=== PATIENT | male | born 2000 | race African-American/Black ===

== ENCOUNTER 2018-01-02 13:53 | Emergency (ER) | payer SELFPAY ==
--- NOTE | 2018-01-02 16:41 | EDPHYS ---
Physician Documentation [facility] Name: Jared Gooden Age: 17 yrs Sex: Male : 2000 Arrival Date: 01/02/2018 Time: 14:30 Bed 12 Private MD: ED Physician Arturo Cagle HPI: 01/02 16:05 This 17 yrs old Black Male presents to ER via Ambulatory with complaints of Foot Injury.cp 16:05 The patient presents with pain, that is acute. The complaints affect the dorsum of cp right foot. Onset: The symptoms/episode began/occurred last night. Associated signs and symptoms: Pertinent negatives calf tenderness, fever, numbness, warmth. Treatment prior to arrival includes: no previous treatment. Historical: - Allergies: 14:34 No Known Allergies; ph - Home Meds: 14:34 None [Active]; ph - PMHx: 14:34 None; ph - PSHx: 14:34 None; ph - Immunization history:: Adult Immunizations unknown. - Social history:: Smoking status: Patient uses tobacco products, denies chronic smoking, but will smoke occasionally. - Ebola Screening: : No symptoms or risks identified at this time. ROS: 16:10 Eyes: Negative for injury, pain, redness, and discharge. cp 16:10 Constitutional: Negative for body aches, chills, fever, poor PO intake. 16:10 ENT: Negative for drainage from ear(s), ear pain, sore throat, difficulty swallowing, difficulty handling secretions. 16:10 Cardiovascular: Negative for chest pain, edema, palpitations. 16:10 Respiratory: Negative for cough, shortness of breath, wheezing. 16:10 Abdomen/GI: Negative for abdominal pain, nausea, vomiting, and diarrhea, constipation. 16:10 Back: Negative for pain at rest, pain with movement, radiated pain. 16:10 MS/extremity: Positive for pain, swelling, tenderness, of the dorsum of right foot, Negative for paresthesias. 16:10 Skin: Negative for cellulitis, rash. 16:10 Neuro: Negative for numbness, tingling. 16:10 All other systems are negative. Exam: 16:15 Head/Face: Normocephalic, atraumatic. cp 16:15 Constitutional: The patient appears in no acute distress, alert, awake, well developed, well nourished. 16:15 Eyes: Periorbital structures: appear normal, Conjunctiva: normal, no exudate, no injection, Lids and lashes: appear normal, bilaterally. 16:15 ENT: External ear(s): are unremarkable, Nose: is normal, Mouth: is normal, Posterior pharynx: is normal, airway is patent. 16:15 Chest/axilla: Inspection: normal. 16:15 Cardiovascular: Rate: normal. 16:15 Respiratory: the patient does not display signs of respiratory distress, Respirations: normal, no use of accessory muscles, no retractions, no splinting, no tachypnea. 16:15 Abdomen/GI: Exam negative for discomfort, distension, guarding, Inspection: abdomen appears normal. 16:15 Back: pain, is absent, ROM is normal. 16:15 Musculoskeletal/extremity: Extremities: grossly normal except: noted in the dorsum of right foot: pain, tenderness, mild swelling noted proximal right foot dorsal side, There is no evidence of decreased ROM, deformity, ecchymosis, Perfusion: the extremity is normally perfused throughout, Sensation intact. no pain or tenderness palpated right knee and right ankle joints. 16:15 Skin: cellulitis, is not appreciated, no rash present. cp Vital Signs: 14:34 BP 124 / 83; Pulse 96; Resp 18; Temp 97.8; Pulse Ox 100% on R/A; Weight 65.77 kg; ph Height 6 ft. 3 in. (190.50 cm); Pain 8/10; 16:15 BP 122 / 78; Pulse 88; Resp 15; Pulse Ox 100% on R/A; hb 14:34 Body Mass Index 18.12 (65.77 kg, 190.50 cm) ph MDM: 16:03 Patient medically screened. cp 16:30 Differential diagnosis: dislocation, closed fracture, contusion, tendonitis, sprain. cp 16:40 Data reviewed: vital signs, nurses notes, radiologic studies, plain films. cp 16:40 Test interpretation: by ED physician or midlevel provider: plain radiologic studies. cp Counseling: I had a detailed discussion with the patient and/or guardian regarding: the historical points, exam findings, and any diagnostic results supporting the discharge/admit diagnosis, radiology results, to return to the emergency department if symptoms worsen or persist or if there are any questions or concerns that arise at home. 01/02 14:36 Order name: Foot Right 3 View XRAY; Complete Time: 16:50 ph 01/02 16:50 Interpretation: Report reviewed. cp 01/02 16:39 Order name: Crutches; Complete Time: 17:28 cp 01/02 16:39 Order name: Post-op Orthopedic Shoe; Complete Time: 17:28 cp Administered Medications: No medications were administered Disposition: 18:03 Co-signature as Attending Physician, Arturo Cagle MD. rn Disposition: 01/02/18 16:41 Discharged to Home. Impression: Unspecified sprain of right foot. - Condition is Stable. - Discharge Instructions: Foot Sprain, Form - Excuse from Work, School, or Physical Activity. - Prescriptions for Naprosyn 500 mg Oral Tablet - take 1 tablet by ORAL route 2 times per day take with food; 20 tablet. - Medication Reconciliation Form, Thank You Letter, Antibiotic Education, Prescription Opioid Use, Work release form, Family Work Release form. - Follow up: Private Physician; When: 2 - 3 days; Reason: Recheck today's complaints. - Problem is new. - Symptoms are unchanged. Signatures: Dispatcher [employer] EDArturo Soliman MD MD rn Hall, Patricia, RN RN ph Page, Corey, PA PA cp Baxter, Heather, RN RN Corrections: (The following items were deleted from the chart) 17:30 16:41 01/02/2018 16:41 Discharged to Home. Impression: Unspecified sprain of right hb foot. Condition is Stable. Forms are Medication Reconciliation Form, Thank You Letter, Antibiotic Education, Prescription Opioid Use. Follow up: Private Physician; When: 2 - 3 days; Reason: Recheck today's complaints. Problem is new. Symptoms are unchanged. cp
--- NOTE | 2018-01-02 16:41 | ER ---
Nurse's Notes [facility] Name: Jared Gooden Age: 17 yrs Sex: Male : 2000 Arrival Date: 01/02/2018 Time: 14:30 Bed 12 Private MD: Diagnosis: Unspecified sprain of right foot Presentation: 01/02 14:33 Presenting complaint: Patient states: " Last night I jumped up and I landed wrong and ph hurt my foot." Pt reports pain in top of right foot, slight swelling noted, CMS intact. Transition of care: patient was not received from another setting of care. Onset of symptoms was January 02, 2018. Risk Assessment: Do you want to hurt yourself or someone else? Patient reports no desire to harm self or others. Initial Sepsis Screen: Does the patient meet any 2 criteria? No. Patient's initial sepsis screen is negative. Does the patient have a suspected source of infection? No. Patient's initial sepsis screen is negative. Care prior to arrival: None. 14:33 Method Of Arrival: Ambulatory ph 14:33 Acuity: AMAURI 4 ph Triage Assessment: 14:34 General: Appears in no apparent distress. comfortable, slender, well groomed, Behavior ph is calm, cooperative, appropriate for age. Pain: Complains of pain in dorsum of right foot. Neuro: Level of Consciousness is awake, alert, obeys commands, Oriented to person, place, time, situation. Cardiovascular: Capillary refill < 3 seconds Patient's skin is warm and dry. Respiratory: Airway is patent Respiratory effort is even, unlabored. Derm: Skin is intact, is healthy with good turgor, Skin is. Musculoskeletal: Circulation, motion, and sensation intact. Range of motion: intact in all extremities, Swelling present in dorsum of right foot. Historical: - Allergies: 14:34 No Known Allergies; ph - Home Meds: 14:34 None [Active]; ph - PMHx: 14:34 None; ph - PSHx: 14:34 None; ph - Immunization history:: Adult Immunizations unknown. - Social history:: Smoking status: Patient uses tobacco products, denies chronic smoking, but will smoke occasionally. - Ebola Screening: : No symptoms or risks identified at this time. Screenin:15 Abuse screen: Denies threats or abuse. Denies injuries from another. Nutritional hb screening: No deficits noted. Tuberculosis screening: No symptoms or risk factors identified. Fall Risk None identified. Assessment: 16:05 General: Appears in no apparent distress. Behavior is calm, cooperative. Pain: Pain hb currently is 5 out of 10 on a pain scale. Neuro: Level of Consciousness is awake, alert, obeys commands, Oriented to person, place, time, situation. Cardiovascular: Capillary refill < 3 seconds Patient's skin is warm and dry. Respiratory: Airway is patent Trachea midline Respiratory effort is even, unlabored, Respiratory pattern is regular, symmetrical. Musculoskeletal: Reports pain in right foot. Vital Signs: 14:34 BP 124 / 83; Pulse 96; Resp 18; Temp 97.8; Pulse Ox 100% on R/A; Weight 65.77 kg; ph Height 6 ft. 3 in. (190.50 cm); Pain 8/10; 16:15 BP 122 / 78; Pulse 88; Resp 15; Pulse Ox 100% on R/A; hb 14:34 Body Mass Index 18.12 (65.77 kg, 190.50 cm) ph ED Course: 14:30 Patient arrived in ED. ph 14:34 Triage completed. ph 14:35 Arm band placed on Patient placed in an exam room, Patient notified of wait time. X-ray ph ordered. 16:03 Rajinder Olvera PA is PHCP. cp 16:03 Arturo Cagle MD is Attending Physician. cp 16:15 Patient has correct armband on for positive identification. Call light in reach. hb 16:34 X-ray completed. Portable x-ray completed in exam room. Patient tolerated procedure bb2 well. 16:35 Foot Right 3 View XRAY In Process Unspecified. EDMS 17:29 No provider procedures requiring assistance completed. Patient did not have IV access hb during this emergency room visit. Administered Medications: No medications were administered Outcome: 16:41 Discharge ordered by . cp 17:29 Discharged to home ambulatory, with crutches, with family. hb 17:29 Condition: stable 17:29 Discharge instructions given to patient, Instructed on discharge instructions, follow up and referral plans. medication usage, crutch walking, Demonstrated understanding of instructions, follow-up care, medications, crutch walking, Prescriptions given X 1. 17:30 Patient left the ED. hb Signatures: Dispatcher [employer] EDMS Yohana Mccarty RN RN ph Rajinder Olvera PA PA cp Baxter, Heather, RN RN Sarah Vences bb2
--- NOTE | 2018-01-02 16:45 | RAD REPORT ---
EXAM DESCRIPTION: RAD - Foot Right 3 View - 01/02/2018 4:36 pm CLINICAL HISTORY: PAIN COMPARISON: No comparisons FINDINGS: No fracture or dislocation is identified.
== END 2018-01-02 17:30 | disposition home or self-care (01) ==
LOC: ER 13:53
DX: S93.601A Unspecified sprain of right foot, initial encounter (principal); X58.XXXA Exposure to other specified factors, initial encounter; Y93.89 Activity, other specified; Y92.9 Unspecified place or not applicable; Z72.0 Tobacco use
CPT/HCPCS: 99283

== ENCOUNTER 2018-11-25 19:24 | Emergency (ER) | payer SELFPAY ==
[2018-11-25] MEDS ORDERED: ONDANSETRON 4 MG/2 ML VIAL ONE (20:03)
[2018-11-25] MEDS ORDERED: MAGNE/ALUM HYDROXD 30 ML UCUP ONE (20:03)
[2018-11-25] MEDS ORDERED: LIDOCAINE VISCOUS 2% SOLN 15 ML UDC ONE (20:04)
[2018-11-25 20:12] LABS: Absolute Lymphocytes (CBC) 1.2 K/uL (0.7-4.9); Absolute Monocytes 0.7 K/uL (0.1-1.3); Absolute Neutrophil 3.8 K/uL (1.8-8.0); Basophils % 0.4 % (0-1.3); Eosinophils % 1.9 % (0-4.4); Hematocrit 43.4 % (39.6-49.0); Lymphocytes % 21.2 % (15.3-44.8); MPV 8.5 fL (7.6-11.3); Monocytes % 12.3 % (3.3-12.3); RBC Red Blood Cell Count 4.79 M/uL (4.33-5.43)
[2018-11-25 20:25] LABS: ALT/SGPT 23 U/L (12-78); AST/SGOT 24 U/L (15-37); Alkaline Phosphatase 86 U/L (45-117); BUN Blood Urea Nitrogen 14 mg/dL (7-18); Bicarbonate 29 mmol/L (21-32); Bilirubin Direct 0.3 mg/dL (0-0.2); Bilirubin Total 1.3 mg/dL (0.2-1.0); Glucose Level 89 mg/dL (74-106); Lipase 71 U/L (73-393); Potassium 3.7 mmol/L (3.5-5.1); Protein, Total 7.2 g/dL (6.4-8.2); Sodium Level 141 mmol/L (136-145)
--- NOTE | 2018-11-25 20:42 | RAD REPORT ---
EXAM DESCRIPTION: CT - Abdomen Pelvis W Contrast - 11/25/2018 8:33 pm CLINICAL HISTORY: Abdominal pain, hematemesis COMPARISON: None. TECHNIQUE: Biphasic, helical CT imaging of the abdomen and pelvis was performed following 100 ml non -ionic IV contrast. No oral contrast was given. All CT scans are performed using dose optimization technique as appropriate and may include automated exposure control or mA/KV adjustment according to patient size. FINDINGS: No suspicious findings in the lung bases. The liver, spleen, and pancreas show no suspicious findings. Gallbladder and biliary tree are also wi thout suspicious finding. No hydronephrosis or obstructing calculus. There is some heterogeneity of the renal parenchyma probab ly still within range of normal. However, pyelonephritis is not excluded and correlation can be made with any abnormal UA findings. No solid mass lesion. No bladder abnormalities. No adrenal abnormaliti es. No gastric dilatation or gastric wall thickening. No dilated large or small bowel loops seen. The ilsa endix is normal. No free air or pneumatosis. There is a small amount of free intraperitoneal fluid pr esent. No hernia, mass or bulky lymphadenopathy. No suspicious bony findings. IMPRESSION: No appendicitis, obstruction or surgically emergent finding. Small quantity of free intraperitoneal fluid. This is nonspecific but could be secondary to enteritis . Slight heterogeneity of the renal parenchyma is present. Correlation is needed with any UA findings t hat may indicate pyelonephritis.
--- NOTE | 2018-11-25 20:58 | ER ---
Nurse's Notes [facility] Name: Jared Gooden Age: 17 yrs Sex: Male : 2000 Arrival Date: 11/25/2018 Time: 19:28 Bed 17 Private MD: Diagnosis: Hematemesis;Enteritis Presentation: 11/25 19:38 Presenting complaint: Patient states: Yesterday I ate some donuts and then I started ed1 having stomach pain. This morning I threw up and it had blood in it. Transition of care: patient was not received from another setting of care. Onset of symptoms was November 24, 2018. Risk Assessment: Do you want to hurt yourself or someone else? Patient reports no desire to harm self or others. Initial Sepsis Screen: Does the patient meet any 2 criteria? No. Patient's initial sepsis screen is negative. Does the patient have a suspected source of infection? No. Patient's initial sepsis screen is negative. Care prior to arrival: None. 19:38 Method Of Arrival: Ambulatory ed1 19:38 Acuity: AMAURI 3 ed1 Triage Assessment: 19:39 General: Appears in no apparent distress. Behavior is calm, cooperative. Pain: ed1 Complains of pain in abdomen Pain currently is 6 out of 10 on a pain scale. GI: Bowel sounds present X 4 quads. Abd is soft and non tender X 4 quads. Reports upper abdominal pain, vomiting. Historical: - Allergies: 19:39 No Known Allergies; ed1 - Home Meds: 19:39 None [Active]; ed1 - PMHx: 19:39 None; ed1 - PSHx: 19:39 None; ed1 - Immunization history:: Adult Immunizations up to date. - Social history:: Smoking status: Patient uses tobacco products, denies chronic smoking, but will smoke occasionally. - Family history:: not pertinent. - Ebola Screening: : Patient negative for fever greater than or equal to 101.5 degrees Fahrenheit, and additional compatible Ebola Virus Disease symptoms Patient denies exposure to infectious person Patient denies travel to an Ebola-affected area in the 21 days before illness onset No symptoms or risks identified at this time. - Hospitalizations: : No recent hospitalization is reported. Screenin:40 Abuse screen: Denies threats or abuse. Denies injuries from another. Nutritional cc3 screening: No deficits noted. Tuberculosis screening: No symptoms or risk factors identified. Fall Risk Ambulatory Aid- None/Bed Rest/Nurse Assist (0 pts). Gait- Normal/Bed Rest/Wheelchair (0 pts) Mental Status- Oriented to own ability (0 pts). Assessment: 19:40 General: Appears in no apparent distress. comfortable, Behavior is calm, cooperative, cc3 appropriate for age. Pain: Complains of pain in abdomen and umbilical area and epigastric area. Neuro: Level of Consciousness is awake, alert, obeys commands, Oriented to person, place, time, situation, Appropriate for age. Cardiovascular: Patient's skin is warm and dry. Respiratory: Airway is patent Respiratory effort is even, unlabored, Respiratory pattern is regular, symmetrical. GI: Abdomen is flat, non-distended, Parent/caregiver reports the patient having vomiting. : No signs and/or symptoms were reported regarding the genitourinary system. EENT: No signs and/or symptoms were reported regarding the EENT system. Derm: Skin is intact, is healthy with good turgor, Skin is pink, warm \T\ dry. normal. Musculoskeletal: Circulation, motion, and sensation intact. Range of motion: intact in all extremities. 20:18 Reassessment: Patient appears in no apparent distress at this time. Patient and/or cc3 family updated on plan of care and expected duration. Pain level reassessed. Patient is alert, oriented x 3, equal unlabored respirations, skin warm/dry/pink. 21:10 Reassessment: Patient appears in no apparent distress at this time. Patient and/or cc3 family updated on plan of care and expected duration. Pain level reassessed. Patient is alert, oriented x 3, equal unlabored respirations, skin warm/dry/pink. Dr. Cagle discharged the patient home with prescription given. IV cannula removed and patient left ER vitally stable and ambulatory with his mother. Patient denies pain at this time. Patient states feeling better. Patient states symptoms have improved. Vital Signs: 19:39 BP 140 / 104; Pulse 69; Resp 17; Temp 97.3(TE); Pulse Ox 99% on R/A; Weight 66.68 kg; ed1 Height 6 ft. 3 in. (190.50 cm); Pain 6/10; 20:20 BP 131 / 99; Pulse 54; Resp 15 S; Temp 97.3(O); Pulse Ox 100% on R/A; cc3 21:00 BP 127 / 83; Pulse 62; Resp 16 S; Pulse Ox 99% on R/A; cc3 19:39 Body Mass Index 18.37 (66.68 kg, 190.50 cm) ed1 ED Course: 19:28 Patient arrived in ED. es 19:32 Arturo Cagle MD is Attending Physician. rn 19:39 Triage completed. ed1 19:39 Arm band placed on. ed1 19:40 Amie Patel is Primary Nurse. cc3 19:40 Patient has correct armband on for positive identification. Bed in low position. Call cc3 light in reach. Side rails up X 1. Pulse ox on. NIBP on. 19:41 Radiology exam delayed due to lab results not completed at this time. IV insertion vm2 attempt and/or patient not having appropriate IV at this time. 19:55 Inserted saline lock: 20 gauge in right antecubital area, using aseptic technique. cc3 Blood collected. 20:19 Radiology exam delayed due to lab results not completed at this time. (BUN/Creatinine). nj 20:[address] via wheelchair. nj 20:30 CT completed. Patient tolerated procedure well. Patient moved back from CT. nj 20:34 CT Abd/Pelvis - IV Contrast Only In Process Unspecified. EDMS 20:45 Urine collected: clean catch specimen, clear, jacque colored. jp3 20:55 Patient maintains SpO2 saturation greater than 95% on room air. jp3 21:10 No provider procedures requiring assistance completed. IV discontinued, intact, cc3 bleeding controlled, No redness/swelling at site. Pressure dressing applied. Administered Medications: 19:50 Drug: GI Cocktail without - (Maalox Suspension 30 ml, Lidocaine Liquid 2 % 15 cc3 ml) Route: PO; 20:30 Follow up: Response: No adverse reaction; Pain is decreased cc3 19:55 Drug: Zofran 4 mg Route: IVP; Site: right antecubital; cc3 20:15 Follow up: Response: No adverse reaction; Nausea is decreased cc3 Outcome: 20:57 Discharge ordered by . rn 21:10 Discharged to home ambulatory, with family. cc3 21:10 Condition: stable 21:10 Discharge instructions given to patient, family, Instructed on discharge instructions, follow up and referral plans. medication usage, Demonstrated understanding of instructions, follow-up care, medications, Prescriptions given X 1. 21:33 Patient left the ED. cc3 Signatures: Dispatcher [employer] EDDomi Ayala Roman, MD MD rn Frank, KARINA Chavez RN ed1 Amol Clarke [place] 2 Dilan Dunlap 3 Amie Patel cc3
--- NOTE | 2018-11-25 20:58 | EDPHYS ---
Physician Documentation [facility] Name: Jared Gooden Age: 17 yrs Sex: Male : 2000 Arrival Date: 11/25/2018 Time: 19:28 Bed 17 Private MD: ED Physician Arturo Cagle HPI: 11/25 19:38 This 17 yrs old Black Male presents to ER via Unassigned with complaints of Abdominal rn Pain, Vomiting blood. 19:38 The patient presents to the emergency department with nausea, vomiting, abdominal pain, rn of the epigastric area and umbilical area. Onset: The symptoms/episode began/occurred yesterday. Possible causes: unknown. The symptoms are aggravated by nothing. The symptoms are alleviated by nothing. Severity of symptoms: At their worst the symptoms were mild in the emergency department the symptoms have improved. The patient has not experienced similar symptoms in the past. Reports mid to upper abd pain that began yesterday, after eating donuts, today had single episode of emesis, with small amount of blood, no clots, denies diarrhea or blood in stool. Has never happened before. NO trauma. No famhx of GI problems. Denies sob/chest pain/weakness/lightheaded. . Historical: - Allergies: 19:39 No Known Allergies; ed1 - Home Meds: 19:39 None [Active]; ed1 - PMHx: 19:39 None; ed1 - PSHx: 19:39 None; ed1 - Immunization history:: Adult Immunizations up to date. - Social history:: Smoking status: Patient uses tobacco products, denies chronic smoking, but will smoke occasionally. - Family history:: not pertinent. - Ebola Screening: : Patient negative for fever greater than or equal to 101.5 degrees Fahrenheit, and additional compatible Ebola Virus Disease symptoms Patient denies exposure to infectious person Patient denies travel to an Ebola-affected area in the 21 days before illness onset No symptoms or risks identified at this time. - Hospitalizations: : No recent hospitalization is reported. ROS: 19:39 Constitutional: Negative for fever, chills, and weight loss, Eyes: Negative for injury, rn pain, redness, and discharge, Neck: Negative for injury, pain, and swelling, Cardiovascular: Negative for chest pain, palpitations, and edema, Respiratory: Negative for shortness of breath, cough, wheezing, and pleuritic chest pain, Abdomen/GI: + abd pain and vomiting, negative for diarrhea Back: Negative for injury and pain, : Negative for injury, bleeding, discharge, and swelling, MS/Extremity: Negative for injury and deformity, Skin: Negative for injury, rash, and discoloration, Neuro: Negative for headache, weakness, numbness, tingling, and seizure. Exam: 19:39 Constitutional: This is a well developed, well nourished patient who is awake, alert, rn and in no acute distress. Ambulatory to room without difficulty or assistance. Head/Face: Normocephalic, atraumatic. Eyes: Pupils equal round and reactive to light, extra-ocular motions intact. Lids and lashes normal. Conjunctiva and sclera are non-icteric and not injected. Cornea within normal limits. Periorbital areas with no swelling, redness, or edema. ENT: MMM Respiratory: No increased work of breathing, no retractions or nasal flaring. Abdomen/GI: soft, mild periumbilical and epigastric tenderness, no rebound Skin: Warm, dry with normal turgor. Normal color with no rashes, no lesions, and no evidence of cellulitis. MS/ Extremity: Pulses equal, no cyanosis. Neurovascular intact. Full, normal range of motion. Equal circumference. Neuro: Awake and alert, GCS 15, oriented to person, place, time, and situation. Cranial nerves II-XII grossly intact. Motor strength 5/5 in all extremities. Sensory grossly intact. Cerebellar exam normal. Normal gait. Vital Signs: 19:39 BP 140 / 104; Pulse 69; Resp 17; Temp 97.3(TE); Pulse Ox 99% on R/A; Weight 66.68 kg; ed1 Height 6 ft. 3 in. (190.50 cm); Pain 6/10; 20:20 BP 131 / 99; Pulse 54; Resp 15 S; Temp 97.3(O); Pulse Ox 100% on R/A; cc3 21:00 BP 127 / 83; Pulse 62; Resp 16 S; Pulse Ox 99% on R/A; cc3 19:39 Body Mass Index 18.37 (66.68 kg, 190.50 cm) ed1 MDM: 19:32 Patient medically screened. rn 20:55 Differential diagnosis: Nonspecific abd pain, gastritis, pancreatitis, appendicitis, rn diverticulitis, viral gastroenteritis, gastroenteritis. Data reviewed: vital signs, nurses notes, lab test result(s), radiologic studies, CT scan, and as a result, I will discharge patient. Counseling: I had a detailed discussion with the patient and/or guardian regarding: the historical points, exam findings, and any diagnostic results supporting the discharge/admit diagnosis, lab results, radiology results, the need for outpatient follow up, to return to the emergency department if symptoms worsen or persist or if there are any questions or concerns that arise at home. Response to treatment: the patient's symptoms have markedly improved after treatment, the patient's condition has returned to base line, the patient is now symptom free, and as a result, I will discharge patient. Special discussion: Based on the patient's Hx, exam, and Dx evaluation, there is no indication for emergent surgery or inpatient Tx. It is understood by the patient/guardian that if the Sx's persist or worsen they need to return immediately for re-evaluation. I discussed with the patient/guardian in detail that at this point there is no indication for admission to the hospital. It is understood, however, that if the symptoms persist or worsen the patient needs to return immediately for re-evaluation. ED course: Pain free after GI cocktail, no emesis, ct no acute findings other than possible enteritis, UA only 1+ leukocyte esterase, neg nitrate, and patient denies any urinary symptoms. Will dc home with zofran and prn maalox, and return precautions. . 11/25 19:37 Order name: Basic Metabolic Panel; Complete Time: 20:35 11/25 19:37 Order name: CBC with Diff; Complete Time: 20:35 11/25 19:37 Order name: Hepatic Function; Complete Time: 20:35 11/25 19:37 Order name: Lipase; Complete Time: 20:35 11/25 19:39 Order name: CT Abd/Pelvis - IV Contrast Only; Complete Time: 20:46 rn 11/25 20:54 Order name: Urine Dipstick--Ancillary (enter results) [facility] 11/25 19:37 Order name: IV Saline Lock; Complete Time: 20:03 11/25 19:37 Order name: Labs collected and sent; Complete Time: 20:03 11/25 20:47 Order name: Urine Dipstick-Ancillary (obtain specimen); Complete Time: 20:55 rn Administered Medications: 19:50 Drug: GI Cocktail without - (Maalox Suspension 30 ml, Lidocaine Liquid 2 % 15 cc3 ml) Route: PO; 20:30 Follow up: Response: No adverse reaction; Pain is decreased cc3 19:55 Drug: Zofran 4 mg Route: IVP; Site: right antecubital; cc3 20:15 Follow up: Response: No adverse reaction; Nausea is decreased cc3 Disposition: 11/25/18 20:57 Discharged to Home. Impression: Hematemesis, Enteritis. - Condition is Stable. - Discharge Instructions: Hematemesis, Viral Gastroenteritis, Adult. - Prescriptions for Zofran ODT 4 mg Oral tablet,disintegrating - place 1 tablet by TRANSLINGUAL route every 8 hours As needed; 20 tablet. - Medication Reconciliation Form, Thank You Letter, Antibiotic Education, Prescription Opioid Use, Work release form form. - Follow up: Private Physician; When: As needed; Reason: Recheck today's complaints, Re-evaluation by your physician. - Problem is new. - Symptoms have improved. Signatures: Dispatcher [employer] EDMS Arturo Cagle MD MD rn Riggs, Erika, RN RN ed1 Amie Patel cc3 Corrections: (The following items were deleted from the chart) 21:33 20:57 11/25/2018 20:57 Discharged to Home. Impression: Hematemesis; Enteritis. cc3 Condition is Stable. Forms are Medication Reconciliation Form, Thank You Letter, Antibiotic Education, Prescription Opioid Use. Follow up: Private Physician; When: As needed; Reason: Recheck today's complaints, Re-evaluation by your physician. Problem is new. Symptoms have improved. rn
[2018-11-25 21:00] LABS: Urine Blood NEGATIVE (NEG); Urine Glucose NEGATIVE (NEG); Urine Protein NEGATIVE (NEG); Urine Specific Gravity <1.005 (1.005-1.030)
== END 2018-11-25 21:33 | disposition home or self-care (01) ==
LOC: ER 19:24
DX: K52.9 Noninfective gastroenteritis and colitis, unspecified (principal); Z72.0 Tobacco use
CPT/HCPCS: 36415; 74177; 80048; 80076; 81003; 83690; 85025; 96374; 99285; J2405; Q9967

== ENCOUNTER 2019-01-16 11:37 | Emergency (ER) | payer SELFPAY ==
[2019-01-16] MEDS ORDERED: LIDOCAINE 2% MPF 5 ML VIAL ONE (12:04)
--- NOTE | 2019-01-16 12:48 | EDPHYS ---
Physician Documentation [facility] Name: Jared Gooden Age: 18 yrs Sex: Male : 2000 Arrival Date: 01/16/2019 Time: 11:39 Bed 16 Private MD: ED Physician Almas Blevins HPI: 01/16 12:05 This 18 yrs old Black Male presents to ER via Ambulatory with complaints of Ear Pain, cp Boil. 12:05 The patient presents with pain, that is acute, swelling, tenderness. The complaints cp affect the left ear canal. Onset: The symptoms/episode began/occurred 5 day(s) ago. Associated signs and symptoms: Pertinent negatives: fever, drainage. Severity of symptoms: in the emergency department the symptoms are unchanged despite home interventions. Historical: - Allergies: 11:47 No Known Allergies; hb - Home Meds: 11:47 None [Active]; hb - PMHx: 11:47 None; hb - PSHx: 11:47 None; hb - Immunization history:: Adult Immunizations up to date. - Social history:: Smoking status: Patient/guardian denies using tobacco. - Ebola Screening: : No symptoms or risks identified at this time. ROS: 12:10 Constitutional: Negative for fever. cp 12:10 Eyes: Negative for injury, pain, redness, and discharge. cp 12:10 ENT: Positive for ear pain, Negative for drainage from ear(s), sinus congestion, sore throat, difficulty swallowing, difficulty handling secretions. 12:10 Respiratory: Negative for cough. 12:10 Abdomen/GI: Negative for abdominal pain. 12:10 All other systems are negative. Exam: 12:10 Constitutional: The patient appears in no acute distress, alert, awake, non-toxic, well cp developed, well nourished. 12:10 Head/Face: Normocephalic, atraumatic. cp 12:10 Eyes: Periorbital structures: appear normal, Conjunctiva: normal, no exudate, no injection, Lids and lashes: appear normal, bilaterally. 12:10 ENT: External ear(s): are unremarkable, Ear canal(s): swelling, of the left canal, mild, TM's: dullness, bilaterally, Nose: is normal, Mouth: is normal, Posterior pharynx: is normal, airway is patent, no erythema, no exudate. 12:10 Neck: ROM/movement: is normal, is supple, without pain, no range of motions limitations, no nuchal rigidity, Lymph nodes: no appreciated lymphadenopathy. 12:10 Chest/axilla: Inspection: normal. 12:10 Cardiovascular: Rate: tachycardic, Rhythm: regular. 12:10 Respiratory: the patient does not display signs of respiratory distress, Respirations: normal, no use of accessory muscles, no retractions, no tachypnea, labored breathing, is not present, Breath sounds: are clear throughout, no decreased breath sounds. Vital Signs: 11:46 BP 114 / 61; Pulse 126; Resp 16; Temp 98; Pulse Ox 99% ; Weight 68.04 kg; Height 6 ft. hb 3 in. (190.50 cm); Pain 8/10; 12:14 Pulse 100; Resp 16 S; Pulse Ox 99% on R/A; jl7 11:46 Body Mass Index 18.75 (68.04 kg, 190.50 cm) hb Procedures: 13:10 I \T\ D: Incision and drainage was performed for an abscess of the left ear canal Prepped cp with Betadine, Anesthetized with 1 ml's 2% Lidocaine. Incised with 18 guage. Drained small amount purulent fluid. Dressing: bacitracin the patient tolerated the procedure well. MDM: 11:58 Patient medically screened. cp 12:46 Data reviewed: vital signs, nurses notes, and as a result, I will admit patient. cp 12:46 Counseling: I had a detailed discussion with the patient and/or guardian regarding: the cp presence of at least one elevated blood pressure reading (>120/80) during this emergency department visit. Response to treatment: the patient's symptoms have markedly improved after treatment, and as a result, I will discharge patient. Administered Medications: 12:45 Drug: Lidocaine (2 %) 5 mg {Note: administered by SARWAT Almeida.} Route: Infiltration; [facility] 13:00 Follow up: Response: No adverse reaction [facility] Disposition: 01/16/19 12:47 Discharged to Home. Impression: Cyst of left ear canal. - Condition is Stable. - Discharge Instructions: Skin Abscess. - Prescriptions for Cortisporin- TC 3.3-3-10-0.5 mg/mL Otic Drops, Suspension - instill 4 drops by OTIC route every 6 hours for 5 days; 1 bottle. - Medication Reconciliation Form, Thank You Letter, Antibiotic Education, Prescription Opioid Use form. - Follow up: Private Physician; When: 48 Hours; Reason: Worsening of condition. - Problem is new. - Symptoms have improved. Addendum: 01/19/2019 09:08 Co-signature as Attending Physician, Almas Blevins MD I agree with the assessment and k dr plan of care. Signatures: Almas Blevins MD MD [facility] Rajinder Olvera PA PA cp Hellen Palma, RN RN Smiley Rodriguez RN RN jl7 Corrections: (The following items were deleted from the chart) 01/16 13:20 12:47 01/16/2019 12:47 Discharged to Home. Impression: Cyst of left ear canal. jl7 Condition is Stable. Forms are Medication Reconciliation Form, Thank You Letter, Antibiotic Education, Prescription Opioid Use. Follow up: Private Physician; When: 48 Hours; Reason: Worsening of condition. Problem is new. Symptoms have improved. cp 13:23 13:20 01/16/2019 12:47 Discharged to Home. Impression: Cyst of left ear canal. jl7 Condition is Stable. Discharge Instructions: Skin Abscess. Prescriptions for Cortisporin-TC 3.3-3-10-0.5 mg/mL Otic Drops, Suspension - instill 4 drops by OTIC route every 6 hours for 5 days; 1 bottle. and Forms are Medication Reconciliation Form, Thank You Letter, Antibiotic Education, Prescription Opioid Use. Follow up: Private Physician; When: 48 Hours; Reason: Worsening of condition. Problem is new. Symptoms have improved. jl7
--- NOTE | 2019-01-16 12:48 | ER ---
Nurse's Notes [facility] Name: Jared Gooden Age: 18 yrs Sex: Male : 2000 Arrival Date: 01/16/2019 Time: 11:39 Bed 16 Private MD: Diagnosis: Cyst of left ear canal Presentation: 01/16 11:45 Presenting complaint: Abscess in left ear canal x 5 days. Denies fever. Transition of care: patient was not received from another setting of care. Onset of symptoms was January 11, 2019. Risk Assessment: Do you want to hurt yourself or someone else? Patient reports no desire to harm self or others. Initial Sepsis Screen: Does the patient meet any 2 criteria? HR > 90 bpm. No. Patient's initial sepsis screen is negative. Does the patient have a suspected source of infection? No. Patient's initial sepsis screen is negative. Care prior to arrival: None. 11:45 Method Of Arrival: Ambulatory hb 11:45 Acuity: AMAURI 3 hb Historical: - Allergies: 11:47 No Known Allergies; hb - Home Meds: 11:47 None [Active]; hb - PMHx: 11:47 None; hb - PSHx: 11:47 None; hb - Immunization history:: Adult Immunizations up to date. - Social history:: Smoking status: Patient/guardian denies using tobacco. - Ebola Screening: : No symptoms or risks identified at this time. Screenin:45 Abuse screen: Denies threats or abuse. Denies injuries from another. Nutritional jl7 screening: No deficits noted. Tuberculosis screening: No symptoms or risk factors identified. Fall Risk None identified. Assessment: 12:14 General: Appears in no apparent distress. comfortable, Behavior is calm, cooperative, jl7 appropriate for age. Pain: Complains of pain in left ear canal Pain currently is 8 out of 10 on a pain scale. Pain began 5 days ago Is continuous. Neuro: Level of Consciousness is awake, alert, obeys commands, Oriented to person, place, time, situation. Cardiovascular: Patient's skin is warm and dry. Respiratory: Airway is patent Respiratory effort is even, unlabored, Respiratory pattern is regular, symmetrical. EENT: Ear canal abscess noted. Derm: Skin is pink, warm \T\ dry. Vital Signs: 11:46 BP 114 / 61; Pulse 126; Resp 16; Temp 98; Pulse Ox 99% ; Weight 68.04 kg; Height 6 ft. hb 3 in. (190.50 cm); Pain 8/10; 12:14 Pulse 100; Resp 16 S; Pulse Ox 99% on R/A; jl7 11:46 Body Mass Index 18.75 (68.04 kg, 190.50 cm) hb ED Course: 11:39 Patient arrived in ED. as 11:46 Triage completed. hb 11:47 Arm band placed on. hb 11:52 Rajinder Olvera PA is PHCP. cp 11:52 Almas Blevins MD is Attending Physician. cp 11:55 Patient has correct armband on for positive identification. Bed in low position. Call jl7 light in reach. Side rails up X 1. Pulse ox on. 11:57 Smiley Rodriguez, KARINA is Primary Nurse. jl7 13:19 No provider procedures requiring assistance completed. Patient did not have IV access jl7 during this emergency room visit. Administered Medications: 12:45 Drug: Lidocaine (2 %) 5 mg {Note: administered by SARWAT Almeida.} Route: Infiltration; jl7 13:00 Follow up: Response: No adverse reaction jl7 Outcome: 12:47 Discharge ordered by MD. cp 13:00 Discharged to home ambulatory. jl7 13:00 Condition: stable 13:00 Discharge instructions given to patient, Instructed on discharge instructions, follow up and referral plans. medication usage, Demonstrated understanding of instructions, follow-up care, medications, Prescriptions given X 1. 13:20 Patient left the ED. jl7 13:23 Patient left the ED. jl7 Signatures: Denise Perez as Rajinder Olvera PA PA cp Hellen Palma, KARINA RN Smiley Rodriguez, KARINA RN jl7 Corrections: (The following items were deleted from the chart) 11:46 11:46 BP 114 / 61; Pulse 124bpm; Resp 16bpm; Pulse Ox 99%; Temp 98F; 68.04 kg; Height 6 hb ft. 3 in.; BMI: 18.7; Pain 8/10; hb
== END 2019-01-16 13:23 | disposition home or self-care (01) ==
LOC: ER 11:37
PROC: 09967ZZ Drainage of Left Middle Ear, Via Natural or Artificial Opening (ICD-10-PCS; principal; 2019-01-16)
DX: Q18.1 Preauricular sinus and cyst (principal)
CPT/HCPCS: 99283

== ENCOUNTER 2020-05-20 16:12 | Emergency (ER) | payer SELFPAY ==
--- NOTE | 2020-05-20 18:28 | ER ---
Nurse's Notes [facility] Name: Jared Gooden Age: 19 yrs Sex: Male : 2000 Arrival Date: 05/20/2020 Time: 16:14 Bed 28 Private MD: Diagnosis: Presentation: 05/20 16:16 Chief complaint: Patient states: pain and swelling to back of gums that began ss yesterday. Pt reports that it is making his throat hurt. Coronavirus screen: Client denies travel out of the [place] in the last 14 days. Ebola Screen: Patient denies exposure to infectious person. Patient denies travel to an Ebola-affected area in the 21 days before illness onset. Initial Sepsis Screen: Does the patient meet any 2 criteria? No. Patient's initial sepsis screen is negative. Does the patient have a suspected source of infection? No. Patient's initial sepsis screen is negative. Risk Assessment: Do you want to hurt yourself or someone else? Patient reports no desire to harm self or others. Onset of symptoms was May 19, 2020. 16:16 Method Of Arrival: Ambulatory ss 16:16 Acuity: AMAURI 4 ss Historical: - Allergies: 16:18 No Known Allergies; ss - Home Meds: 16:18 None [Active]; ss - PMHx: 16:18 None; ss - PSHx: 16:18 None; ss - Immunization history:: Adult Immunizations up to date. - Social history:: Smoking status: Patient reports the use of cigarette tobacco products, smokes one-half pack cigarettes per day. Vital Signs: 16:16 BP 136 / 80; Pulse 77; Resp 16; Temp 98.9(TE); Pulse Ox 99% on R/A; Weight 61.23 kg; ss Height 6 ft. 4 in. (193.04 cm); Pain 10/10; 16:16 Body Mass Index 16.43 (61.23 kg, 193.04 cm) ED Course: 16:14 Patient arrived in ED. as 16:18 Triage completed. ss 16:18 Arm band placed on right wrist. ss 17:00 [facility]C [facility] kb 17:00 Rajinder Ohara MD is Attending Physician. kb 18:15 Nayeli Kan, KARINA is Primary Nurse. iw Administered Medications: No medications were administered Outcome: 18:27 Patient left the ED. iw Signatures: Bonnie Stahl, DAYNA SHUKLA-Denise Dinero as Nayeli Kan, RN RN iw Joann Javier RN RN ss
[2020-05-20] MEDS ORDERED: NA CHLORIDE 0.9% 500 ML ONE (19:22)
[2020-05-25 19:55] VITALS: BP 136/80; TEMP 98.9; O2SAT 99
== END 2020-05-20 18:27 | disposition left against medical advice (07) ==
LOC: ER 16:12
DX: Z53.21 Procedure and treatment not carried out due to patient leaving prior to being seen by health care provider (principal)
CPT/HCPCS: 99281; J7040

== ENCOUNTER 2020-11-01 06:51 | Emergency (ER) | payer SELFPAY ==
[2020-11-01] MEDS ORDERED: KETOROLAC 30 MG/ML INJ ONE (08:52)
[2020-11-01 08:59] LABS: SARS-COV-2 RT PCR NEGATIVE (NEGATIVE)
--- NOTE | 2020-11-01 09:18 | EDPHYS ---
Physician Documentation [facility] Name: Jared Gooden Age: 19 yrs Sex: Male : 2000 Arrival Date: 11/01/2020 Time: 06:55 Bed 12 Private MD: ED Physician Arturo Cagle HPI: 11/01 07:57 This 19 yrs old Black Male presents to ER via Ambulatory with complaints of Fever, Sore rn Throat, Headache, SWEATS. 07:57 The patient reports fever, that was measured at 100.3 degrees Fahrenheit. Onset: The rn symptoms/episode began/occurred yesterday. Modifying factors: there are no obvious modifying factors. Associated signs and symptoms: Pertinent positives: headache, night sweats, sore throat, Pertinent negatives: abdominal pain, altered mental status, chest pain, cough, diarrhea, skin rash, shortness of breath, swelling, vomiting. Severity of symptoms: At their worst the symptoms were moderate in the emergency department the symptoms have improved. The patient has not experienced similar symptoms in the past. The patient has not recently seen a physician. 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 Historical: - Allergies: 07:12 No Known Allergies; ld1 - Home Meds: 07:12 None [Active]; ld1 - PMHx: 07:12 None; ld1 - PSHx: 07:12 None; ld1 - Immunization history:: Adult Immunizations up to date. - Social history:: Smoking status: Patient denies any tobacco usage or history of. Patient uses Marijuana daily, Patient/guardian denies using alcohol. - Family history:: not pertinent. - Hospitalizations: : No recent hospitalization is reported. ROS: 07:57 Constitutional: + fever, chills, and sweating Eyes: Negative for injury, pain, redness, rn and discharge, ENT: + sore throat Neck: Negative for injury, pain, and swelling, Cardiovascular: Negative for chest pain, palpitations, and edema, Respiratory: Negative for shortness of breath, cough, wheezing, and pleuritic chest pain, Abdomen/GI: Negative for abdominal pain, nausea, vomiting, diarrhea, and constipation, Back: Negative for injury and pain, MS/Extremity: Negative for injury and deformity, Skin: Negative for injury, rash, and discoloration, Neuro: Negative for numbness, tingling, and seizure. Exam: 07:57 Constitutional: This is a well developed, well nourished patient who is awake, alert, rn and in no acute distress. Using phone. Head/Face: Normocephalic, atraumatic. Eyes: Pupils equal round and reactive to light, extra-ocular motions intact. Lids and lashes normal. Conjunctiva and sclera are non-icteric and not injected. Cornea within normal limits. Periorbital areas with no swelling, redness, or edema. ENT: MMM, + mild tonsillar hypertrophy, no evidence of [employer] Neck: Trachea midline, no masses palpated. Supple, full range of motion without nuchal rigidity, or vertebral point tenderness. No Meningismus. + tender small left cervical lymphadenopathy. Cardiovascular: Regular rate and rhythm. No pulse deficits. Respiratory: No increased work of breathing, no retractions or nasal flaring. Skin: Warm, dry with normal turgor. Normal color with no rashes, no lesions, and no evidence of cellulitis. MS/ Extremity: Pulses equal, no cyanosis. Neurovascular intact. Full, normal range of motion. Equal circumference. Neuro: Awake and alert, GCS 15, oriented to person, place, time, and situation. Cranial nerves II-XII grossly intact. Motor strength 5/5 in all extremities. Sensory grossly intact. Cerebellar exam normal. Vital Signs: 07:09 BP 115 / 72; Pulse 74; Resp 18; Temp 98.7(O); Pulse Ox 99% on R/A; Weight 68.04 kg; ld1 Height 6 ft. 4 in. (193.04 cm); Pain 0/10; 07:12 BP 115 / 72; Pulse 74; Resp 18; Temp 98.7(O); Pulse Ox 99% on R/A; Weight 68.04 kg; ld1 Height 6 ft. 4 in. (193.04 cm); Pain 0/10; 08:43 BP 118 / 74; Pulse 78; Resp 18; Pulse Ox 100% on R/A; ld1 07:12 Body Mass Index 18.26 (68.04 kg, 193.04 cm) ld1 MDM: 07:19 Patient medically screened. rn 09:16 Differential diagnosis: viral Infection, bacterial infection, URI. Data reviewed: vital rn signs, nurses notes, lab test result(s), and as a result, I will discharge patient. Counseling: I had a detailed discussion with the patient and/or guardian regarding: the historical points, exam findings, and any diagnostic results supporting the discharge/admit diagnosis, lab results, the need for outpatient follow up, to return to the emergency department if symptoms worsen or persist or if there are any questions or concerns that arise at home. Response to treatment: the patient's symptoms have markedly improved after treatment, and as a result, I will discharge patient. Special discussion: I discussed with the patient/guardian in detail that at this point there is no indication for admission to the hospital. It is understood, however, that if the symptoms persist or worsen the patient needs to return immediately for re-evaluation. 11/01 07:27 Order name: Flu rn 11/01 07:27 Order name: Strep rn 11/01 07:27 Order name: COVID-19 : Document "Date of Symptom Onset" if Symptomatic. rn 11/01 07:27 Order name: [place] Screen Profile rn 11/01 08:05 Order name: [place] Screen; Complete Time: 08:27 EDMN 11/01 08:15 Order name: CORONAVIRUS EDMN 11/01 08:16 Order name: Influenza Screen (A EDMN 11/01 08:37 Order name: Group A Streptococcus Rapid Sc; Complete Time: 09:04 EDMS 11/01 08:59 Order name: COVID-19/FLU A+B; Complete Time: 09:04 EDMS Administered Medications: 08:39 Drug: TORadol (ketorolac) 30 mg Route: IM; Site: right deltoid; ld1 08:43 Follow up: Response: No adverse reaction ld1 Disposition: 11/01/20 09:17 Discharged to Home. Impression: Streptococcal tonsillitis. - Condition is Stable. - Discharge Instructions: Strep Throat. - Prescriptions for Augmentin 875- 125 mg Oral Tablet - take 1 tablet by ORAL route every 12 hours for 10 days; 20 tablet. - Medication Reconciliation Form, Thank You Letter, Antibiotic Education, Prescription Opioid Use, Work release form form. - Follow up: Private Physician; When: As needed; Reason: Recheck today's complaints, Re-evaluation by your physician. - Problem is new. - Symptoms have improved. Signatures: Dispatcher [employer] EDArturo Soliman MD MD rn Dibbern, Lauren, RN RN ld1 Corrections: (The following items were deleted from the chart) 09:31 09:17 11/01/2020 09:17 Discharged to Home. Impression: Streptococcal tonsillitis. ld1 Condition is Stable. Forms are Medication Reconciliation Form, Thank You Letter, Antibiotic Education, Prescription Opioid Use. Follow up: Private Physician; When: As needed; Reason: Recheck today's complaints, Re-evaluation by your physician. Problem is new. Symptoms have improved. rn
--- NOTE | 2020-11-01 09:18 | ER ---
Nurse's Notes [facility] Name: Jared Gooden Age: 19 yrs Sex: Male : 2000 Arrival Date: 11/01/2020 Time: 06:55 Bed 12 Private MD: Diagnosis: Streptococcal tonsillitis Presentation: 11/01 07:09 Chief complaint: Patient states: fever, sore throat, body aches, sweating X 3 days. ld1 Coronavirus screen: Client denies travel out of the [place] in the last 14 days. Client presents with at least one sign or symptom that may indicate coronavirus-19. Standard/surgical mask placed on the client. Ebola Screen: No symptoms or risks identified at this time. Initial Sepsis Screen: Does the patient meet any 2 criteria? No. Patient's initial sepsis screen is negative. Does the patient have a suspected source of infection? No. Patient's initial sepsis screen is negative. Risk Assessment: Do you want to hurt yourself or someone else? Patient reports no desire to harm self or others. Onset of symptoms was October 29, 2020. Care prior to arrival: None. 07:09 Method Of Arrival: Ambulatory ld1 07:09 Acuity: AMAURI 3 ld1 Triage Assessment: 07:12 General: Appears in no apparent distress. comfortable, Behavior is calm, cooperative, ld1 appropriate for age. Pain: Denies pain. EENT: Throat is pink. Neuro: Level of Consciousness is awake, alert, obeys commands, Oriented to person, place, time, situation, Appropriate for age. Cardiovascular: Capillary refill < 3 seconds Patient's skin is warm and dry. Respiratory: Airway is patent Respiratory effort is even, unlabored, Respiratory pattern is regular, symmetrical. GI: Abdomen is flat, non-distended. : No signs and/or symptoms were reported regarding the genitourinary system. Derm: No signs and/or symptoms reported regarding the dermatologic system. Musculoskeletal: No signs and/or symptoms reported regarding the musculoskeletal system. Historical: - Allergies: 07:12 No Known Allergies; ld1 - Home Meds: 07:12 None [Active]; ld1 - PMHx: 07:12 None; ld1 - PSHx: 07:12 None; ld1 - Immunization history:: Adult Immunizations up to date. - Social history:: Smoking status: Patient denies any tobacco usage or history of. Patient uses Marijuana daily, Patient/guardian denies using alcohol. - Family history:: not pertinent. - Hospitalizations: : No recent hospitalization is reported. Screenin:14 Abuse screen: Denies threats or abuse. Denies injuries from another. Nutritional ld1 screening: No deficits noted. Tuberculosis screening: No symptoms or risk factors identified. Fall Risk None identified. Assessment: 07:14 Reassessment: See triage assessment. Respiratory: Airway is patent Respiratory effort ld1 is even, unlabored, Respiratory pattern is regular, symmetrical, Breath sounds are clear bilaterally. 08:30 Reassessment: Pt c/o headache 12/24. Notified ERP. See MAR for orders. ld1 08:43 Reassessment: Patient appears in no apparent distress at this time. No changes from ld1 previously documented assessment. Patient and/or family updated on plan of care and expected duration. Pain level reassessed. Patient is alert, oriented x 3, equal unlabored respirations, skin warm/dry/pink. Pt sitting in room with mother at bedside. Denies concerns at this time. Vital Signs: 07:09 BP 115 / 72; Pulse 74; Resp 18; Temp 98.7(O); Pulse Ox 99% on R/A; Weight 68.04 kg; ld1 Height 6 ft. 4 in. (193.04 cm); Pain 0/10; 07:12 BP 115 / 72; Pulse 74; Resp 18; Temp 98.7(O); Pulse Ox 99% on R/A; Weight 68.04 kg; ld1 Height 6 ft. 4 in. (193.04 cm); Pain 0/10; 08:43 BP 118 / 74; Pulse 78; Resp 18; Pulse Ox 100% on R/A; ld1 07:12 Body Mass Index 18.26 (68.04 kg, 193.04 cm) ld1 ED Course: 06:55 Patient arrived in ED. es 07:08 Savannah Pruett, KARINA is Primary Nurse. ld1 07:11 Triage completed. ld1 07:12 Arm band placed on right wrist. ld1 07:14 Patient has correct armband on for positive identification. Call light in reach. Pulse ld1 ox on. NIBP on. Door closed. Noise minimized. Warm blanket given. 07:14 No provider procedures requiring assistance completed. ld1 07:19 Arturo Cagle MD is Attending Physician. rn 07:43 [place] Screen Profile Sent. ld1 07:43 COVID-19 : Document "Date of Symptom Onset" if Symptomatic. Sent. ld1 07:43 Strep Sent. ld1 07:43 Flu Sent. ld1 08:16 CORONAVIRUS Sent. sv 08:17 Influenza Screen (A Sent. sv 08:36 Notified ED physician of a critical lab result(s). strep-positive. sv 09:29 Patient did not have IV access during this emergency room visit. ld1 Administered Medications: 08:39 Drug: TORadol (ketorolac) 30 mg Route: IM; Site: right deltoid; ld1 08:43 Follow up: Response: No adverse reaction ld1 Outcome: 09:17 Discharge ordered by . rn 09:28 Discharged to home ambulatory. ld1 09:28 Condition: stable 09:28 Discharge instructions given to patient, Instructed on discharge instructions, follow up and referral plans. medication usage, Demonstrated understanding of instructions, follow-up care, medications. 09:31 Patient left the ED. ld1 Signatures: Lelo Martinez RN RN sv Salyer, Edna es Nieto, Roman, MD MD rn Dibbern, Lauren, RN RN ld1
[2020-11-01 09:37] VITALS: TEMP 98.7
[2020-11-01 09:41] VITALS: BP 118/74; O2SAT 100
== END 2020-11-01 09:31 | disposition home or self-care (01) ==
LOC: ER 06:51
DX: J02.0 Streptococcal pharyngitis (principal); Z20.822 Contact with and (suspected) exposure to COVID-19
CPT/HCPCS: 0240U; 36415; 86308; 87081; 96372; 99283

== ENCOUNTER 2022-12-14 19:12 | Emergency (ER) | payer SELFPAY ==
--- NOTE | 2022-12-14 19:21 | EDPHYS ---
Physician Documentation [facility] Name: Jared Gooden Age: 21 yrs Sex: Male : 2000 Arrival Date: 12/14/2022 Time: 19:12 Bed 12 Private MD: DEVEN Physician Rajinder Ohara HPI: 12/14 19:23 This 21 yrs old Black Male presents to ER via Ambulatory with complaints of Penile kb Discharge. 19:23 The patient presents with symptoms include green penile discharge. Onset: The kb symptoms/episode began/occurred today. Modifying factors: The symptoms are alleviated by nothing, the symptoms are aggravated by nothing. Associated signs and symptoms: The patient has no apparent associated signs or symptoms. Severity of symptoms: At their worst the symptoms were moderate, in the emergency department the symptoms are unchanged. The patient has not experienced similar symptoms in the past. The patient has not recently seen a physician. Pt reports green penile discharge that started today. Reports he had unprotected sex about 4 days ago. Historical: - Allergies: 19:20 No Known Allergies; rv - PMHx: 19:20 None; rv - PSHx: 19:20 None; rv - Immunization history:: Adult Immunizations up to date. - Social history:: Smoking status: Patient denies any tobacco usage or history of. ROS: 19:21 Constitutional: Negative for fever, chills, and weight loss. kb 19:21 : Positive for penile discharge. 19:21 All other systems are negative. Exam: 19:21 Constitutional: This is a well developed, well nourished patient who is awake, alert, kb and in no acute distress. Head/Face: Normocephalic, atraumatic. ENT: Moist Mucous membranes Cardiovascular: Regular rate and rhythm with a normal S1 and S2. No gallops, murmurs, or rubs. No pulse deficits. Respiratory: Respirations even and unlabored. No increased work of breathing. Talking in full sentences Abdomen/GI: Soft, non-tender. No distention Skin: Warm, dry with normal turgor. Normal color. MS/ Extremity: Pulses equal, no cyanosis. Neurovascular intact. Full, normal range of motion. Neuro: Awake and alert, GCS 15, oriented to person, place, time, and situation. Moves all extremities. Normal gait. Vital Signs: 19:18 BP 155 / 94; Pulse 84; Resp 18; Temp 98.4; Pulse Ox 100% ; Weight 71.21 kg; Height 6 rv ft. 4 in. ; 19:18 Body Mass Index 19.11 (71.21 kg, 193.04 cm) rv MDM: 19:16 Patient medically screened. kb 19:22 Differential diagnosis: UTI, urethritis, chlamydia, gonorrhea. Data reviewed: vital kb signs, nurses notes. Test considered but Not performed: Labs: GC probe considered, but would not change the course of treatment. Counseling: I had a detailed discussion with the patient and/or guardian regarding: the historical points, exam findings, and any diagnostic results supporting the discharge/admit diagnosis, the need for outpatient follow up, a urologist, STI clinic, to return to the emergency department if symptoms worsen or persist or if there are any questions or concerns that arise at home. Administered Medications: 19:28 Drug: Rocephin (cefTRIAXone) IM 500 mg Route: IM; Site: right deltoid; rv 19:29 Follow up: Response: Medication administered at discharge. rv 19:29 Drug: AZITHromycin PO 1 grams Route: PO; rv 19:29 Follow up: Response: Medication administered at discharge. rv Disposition Summary: 12/14/22 19:21 Discharge Ordered Location: Home kb Condition: Stable kb Diagnosis - Unspecified sexually transmitted disease kb Followup: kb - With: Emergency Department - When: As needed - Reason: Worsening of condition Followup: kb - With: Private Physician - When: 2 - 3 days - Reason: Recheck today's complaints, Continuance of care, Re-evaluation by your physician Discharge Instructions: - Discharge Summary Sheet kb - Preventing Sexually Transmitted Infections, Adult kb Forms: - Medication Reconciliation Form kb - Thank You Letter kb - Antibiotic Education kb - Prescription Opioid Use kb - [email or web address] kb Signatures: Bonnie Stahl FNP-C FNP-Ayush Ho, RN RN rv
--- NOTE | 2022-12-14 19:21 | ER ---
Nurse's Notes [facility] Name: Jared Gooden Age: 21 yrs Sex: Male : 2000 Arrival Date: 12/14/2022 Time: 19:12 Bed 12 Private MD: Diagnosis: Unspecified sexually transmitted disease Presentation: 12/14 19:18 Chief complaint: Patient states: GREENISH PENILE DISCHARGE, NOTICED TODAY. DENIES FEVER rv ANY OTHER SYMPTOMS. Coronavirus screen: Vaccine status: Patient reports being unvaccinated. Ebola Screen: Patient negative for fever greater than or equal to 101.5 degrees Fahrenheit, and additional compatible Ebola Virus Disease symptoms Patient denies exposure to infectious person. Patient denies travel to an Ebola-affected area in the 21 days before illness onset. Initial Sepsis Screen: Does the patient meet any 2 criteria? No. Patient's initial sepsis screen is negative. Does the patient have a suspected source of infection? No. Patient's initial sepsis screen is negative. Risk Assessment: Do you want to hurt yourself or someone else? Patient reports no desire to harm self or others. Onset of symptoms was December 14, 2022. 19:18 Method Of Arrival: Ambulatory rv 19:18 Acuity: AMAURI 5 rv Triage Assessment: 19:20 General: Appears comfortable, Behavior is calm, cooperative. Pain: Denies pain. Neuro: rv Level of Consciousness is awake, alert, obeys commands, Oriented to person, place, time, situation. Respiratory: Airway is patent Respiratory effort is even, unlabored. GI: No signs and/or symptoms were reported involving the gastrointestinal system. : Reports discharge, from penis that is green. Historical: - Allergies: 19:20 No Known Allergies; rv - PMHx: 19:20 None; rv - PSHx: 19:20 None; rv - Immunization history:: Adult Immunizations up to date. - Social history:: Smoking status: Patient denies any tobacco usage or history of. Screenin:21 [facility] ED Fall Risk Assessment (Adult) History of falling in the last 3 months, rv including since admission No falls in past 3 months (0 pts) Confusion or Disorientation No (0 pts) Intoxicated or Sedated No (0 pts) Impaired Gait No (0 pts) Mobility Assist Device Used No (0 pt) Altered Elimination No (0 pt) Score/Fall Risk Level 0 - 2 = Low Risk Oriented to surroundings, Maintained a safe environment, Educated pt \T\ family on fall prevention, incl call for assistance when getting out of bed, Assessed \T\ reinforced patient's understanding of fall precautions, Provided non-skid footwear, Hourly rounding (assess needs \T\ fall precautionary measures) done, Used ambulatory aids as needed (educated on \T\ assisted with), Used gait belt as appropriate. Abuse screen: Denies threats or abuse. Denies injuries from another. Nutritional screening: No deficits noted. Tuberculosis screening: No symptoms or risk factors identified. Vital Signs: 19:18 BP 155 / 94; Pulse 84; Resp 18; Temp 98.4; Pulse Ox 100% ; Weight 71.21 kg; Height 6 rv ft. 4 in. ; 19:18 Body Mass Index 19.11 (71.21 kg, 193.04 cm) rv ED Course: 19:16 Patient arrived in ED. [id number] 19:16 Bonnie Stahl FNP-C is [facility]. kb 19:16 Rajinder Ohara MD is Attending Physician. kb 19:20 Triage completed. rv 19:20 Arm band placed on right wrist. rv 19:21 Patient has correct armband on for positive identification. rv 19:29 No provider procedures requiring assistance completed. Patient did not have IV access rv during this emergency room visit. Administered Medications: 19:28 Drug: Rocephin (cefTRIAXone) IM 500 mg Route: IM; Site: right deltoid; rv 19:29 Follow up: Response: Medication administered at discharge. rv 19:29 Drug: AZITHromycin PO 1 grams Route: PO; rv 19:29 Follow up: Response: Medication administered at discharge. rv Medication: 19:21 VIS not applicable for this client. rv Outcome: 19:21 Discharge ordered by MD. kb 19:29 Discharged to home ambulatory. rv 19:29 Condition: good 19:29 Discharge instructions given to patient, Instructed on discharge instructions, follow up and referral plans. Demonstrated understanding of instructions, follow-up care. 19:29 Patient left the ED. rv Signatures: Bonnie Stahl FNP-C FNP-Ckb Vicente, Ronaldo, RN RN rv Alicia Solomon [email or web address]
[2022-12-14] MEDS ORDERED: CEFTRIAXONE 500 MG/VIAL ONE (19:31)
[2022-12-14] MEDS ORDERED: WATER FOR INJ,STERILE 10 ML ONE (19:32)
[2022-12-14] MEDS ORDERED: AZITHROMYCIN 250 MG TAB ONE ×2 (19:32→19:39)
[2022-12-14 19:39] VITALS: BP 155/94; TEMP 98.4; O2SAT 100
== END 2022-12-14 19:29 | disposition home or self-care (01) ==
LOC: ER 19:12
DX: A64 Unspecified sexually transmitted disease (principal)
CPT/HCPCS: 96372; 99284

== ENCOUNTER → 2023-07-17 | Emergency (ER) | payer SELFPAY ==
[~2023-07-17] MED LIST: MAGNESIUM CITRATE 300 ML BOT ONE
--- NOTE | 2023-07-17 15:52 | RAD REPORT ---
EXAM DESCRIPTION: RAD - Abdomen 1 View (KUB) - 07/17/2023 3:12 pm CLINICAL HISTORY: Abdomen pain FINDINGS: The bowel gas pattern is unremarkable. Moderate to marked amount of stool is present throughout the colon No significant abnormal calcification is displayed
--- NOTE | 2023-07-17 16:41 | ER ---
Nurse's Notes [facility] Name: Jared Gooden Age: 22 yrs Sex: Male : 2000 Arrival Date: 07/17/2023 Time: 14:48 Bed 9 Private MD: Diagnosis: Constipation Presentation: 07/17 14:55 Chief complaint: Patient states: 2 DAYS BLQ PAIN AND CONSTIPATION. Coronavirus screen: bp At this time, the client does not indicate any symptoms associated with coronavirus-19. Ebola Screen: No symptoms or risks identified at this time. Initial Sepsis Screen: Does the patient meet any 2 criteria? No. Patient's initial sepsis screen is negative. Does the patient have a suspected source of infection? No. Patient's initial sepsis screen is negative. Risk Assessment: Do you want to hurt yourself or someone else? Patient reports no desire to harm self or others. Onset of symptoms is unknown. 14:55 Method Of Arrival: Ambulatory bp 14:55 Acuity: AMAURI 3 bp Triage Assessment: 14:56 General: Appears in no apparent distress. uncomfortable, Behavior is calm, cooperative, bp appropriate for age. Pain: Complains of pain in right lower quadrant and left lower quadrant. GI: Reports constipation. Historical: - Allergies: 14:56 No Known Allergies; bp - Home Meds: 14:56 None [Active]; bp - PMHx: 14:56 None; bp - Immunization history:: Adult Immunizations up to date. - Social history:: Smoking status: Patient denies any tobacco usage or history of. Screenin:35 [facility] ED Fall Risk Assessment (Adult) History of falling in the last 3 months, rs5 including since admission No falls in past 3 months (0 pts) Confusion or Disorientation No (0 pts) Intoxicated or Sedated No (0 pts) Impaired Gait No (0 pts) Mobility Assist Device Used No (0 pt) Altered Elimination No (0 pt) Score/Fall Risk Level 0 - 2 = Low Risk Oriented to surroundings, Maintained a safe environment. Abuse screen: Denies threats or abuse. Nutritional screening: No deficits noted. Tuberculosis screening: No symptoms or risk factors identified. Assessment: 16:34 Reassessment: Pt arrived in room. rs5 16:35 General: Appears in no apparent distress. comfortable, Behavior is calm, cooperative. rs5 Pain: Complains of pain in lower abdomen bilat Pain does not radiate. Pain currently is 3 out of 10 on a pain scale. Quality of pain is described as aching, Pain began 2-3 days ago. Is continuous. Neuro: Level of Consciousness is awake, alert, Oriented to person, place, time, situation. Cardiovascular: Heart tones S1 S2 present Rhythm is regular. Respiratory: Airway is patent Respiratory effort is even, unlabored, Respiratory pattern is regular, symmetrical, Breath sounds are clear bilaterally. GI: Bowel sounds present X 4 quads. Abd is soft and non tender X 4 quads. Reports constipation, since 07/11/23. : No signs and/or symptoms were reported regarding the genitourinary system. EENT: No signs and/or symptoms were reported regarding the EENT system. Derm: Skin is intact, Skin is dry, Skin is normal, Skin temperature is warm. Musculoskeletal: Range of motion: intact in all extremities. Vital Signs: 14:55 BP 161 / 85; Pulse 72; Resp 16; Temp 98; Pulse Ox 100% ; Weight 68.04 kg; Height 6 ft. bp 4 in. ; 16:35 BP 150 / 80; Pulse 77; Resp 17; Temp 97.9; Pulse Ox 99% ; rs5 16:40 BP 151 / 78; Pulse 70; Resp 17; Pulse Ox 99% ; rs5 14:55 Body Mass Index 18.26 (68.04 kg, 193.04 cm) bp ED Course: 14:51 Patient arrived in ED. im 14:52 [facility]C [facility] kb 14:52 Rajinder Ohara MD is Attending Physician. kb 14:56 Triage completed. bp 14:57 Arm band placed on. bp 15:14 Abdomen 1 View (KUB) XRAY In Process Unspecified. EDMS 16:35 Patient placed in an exam room, on a stretcher. ll1 16:40 Braden Regalado RN is Primary Nurse. rs5 16:42 No provider procedures requiring assistance completed. Patient did not have IV access rs5 during this emergency room visit. 16:43 Patient has correct armband on for positive identification. Bed in low position. Call rs5 light in reach. Side rails up X2. 16:49 Provided Education on: discharge instructions. ap3 Administered Medications: 16:40 Drug: Magnesium Citrate PO Liquid 300 ml PO once Route: PO; rs5 Medication: 16:43 VIS not applicable for this client. rs5 Outcome: 16:41 Discharge ordered by . aleksandr 16:42 Discharged to home ambulatory, rs5 16:42 Condition: stable 16:42 Discharge instructions given to patient, Instructed on discharge instructions, follow up and referral plans. Demonstrated understanding of instructions, follow-up care, 16:49 Patient left the ED. ap3 Signatures: Dispatcher [employer] EDKS Bonnie Stahl, VAZQUEZ-Aaron SHUKLA-Andres Alcantara, RN RN bp N[address]chi [address] RN RN ap3 Bishop Cunningham RN RN ll1 Braden Regalado RN RN rs5 Eliana Cortés
--- NOTE | 2023-07-17 16:41 | EDPHYS ---
Physician Documentation [facility] Name: Jared Gooden Age: 22 yrs Sex: Male : 2000 Arrival Date: 07/17/2023 Time: 14:48 Bed 9 Private MD: ED Physician Rajinder Ohara HPI: 07/17 15:06 This 22 yrs old Black Male presents to ER via Ambulatory with complaints of Abdominal kb Pain, Constipation. 15:06 Patient is a 22-year-old male who presents for lower abdominal pain and constipation kb for 2 days. Denies abdominal tenderness, nausea, vomiting, fever, chills.. Historical: - Allergies: 14:56 No Known Allergies; bp - Home Meds: 14:56 None [Active]; bp - PMHx: 14:56 None; bp - Immunization history:: Adult Immunizations up to date. - Social history:: Smoking status: Patient denies any tobacco usage or history of. ROS: 15:06 Constitutional: Negative for fever, chills, and weight loss, kb 15:06 Abdomen/GI: Positive for abdominal pain, constipation, 15:06 All other systems are negative, Exam: 15:06 Constitutional: This is a well developed, well nourished patient who is awake, alert, kb and in no acute distress. Head/Face: Normocephalic, atraumatic. ENT: Moist Mucous membranes Cardiovascular: Regular rate Respiratory: Respirations even and unlabored. No increased work of breathing. Talking in full sentences Abdomen/GI: Soft, non-tender. No distention Skin: Warm, dry with normal turgor. Normal color. MS/ Extremity: Pulses equal, no cyanosis. Neurovascular intact. Full, normal range of motion. Neuro: Awake and alert, GCS 15, oriented to person, place, time, and situation. Moves all extremities. Normal gait. Vital Signs: 14:55 BP 161 / 85; Pulse 72; Resp 16; Temp 98; Pulse Ox 100% ; Weight 68.04 kg; Height 6 ft. bp 4 in. ; 16:35 BP 150 / 80; Pulse 77; Resp 17; Temp 97.9; Pulse Ox 99% ; rs5 16:40 BP 151 / 78; Pulse 70; Resp 17; Pulse Ox 99% ; rs5 14:55 Body Mass Index 18.26 (68.04 kg, 193.04 cm) bp MDM: 14:54 Patient medically screened. kb 15:07 Data reviewed: vital signs, nurses notes. kb 16:41 Differential diagnosis: bowel obstruction, non-specific abd pain, constipation. Test kb considered but Not performed: Labs: CBC and CMP considered but patient has no abdominal tenderness, vital signs stable, nontoxic in appearance, afebrile. Counseling: I had a detailed discussion with the patient and/or guardian regarding the historical points, exam findings, and any diagnostic results supporting the discharge/admit diagnosis, radiology results, the need for outpatient follow up, a family practitioner, to return to the emergency department if symptoms worsen or persist or if there are any questions or concerns that arise at home. 07/17 14:57 Order name: Abdomen 1 View (KUB) XRAY; Complete Time: 16:25 kb Administered Medications: 16:40 Drug: Magnesium Citrate PO Liquid 300 ml PO once Route: PO; rs5 Disposition Summary: 07/17/23 16:41 Discharge Ordered Notes: Location: Home kb Condition: Stable kb Diagnosis - Constipation kb Followup: kb - With: Emergency Department - When: As needed - Reason: Worsening of condition Followup: kb - With: Private Physician - When: 2 - 3 days - Reason: Recheck today's complaints, Continuance of care, Re-evaluation by your physician Discharge Instructions: - Discharge Summary Sheet kb - Constipation, Adult, Wsci-gs-Tcad kb Forms: - Medication Reconciliation Form kb - Thank You Letter kb - Antibiotic Education kb - Prescription Opioid Use kb - Patient Portal Instructions kb - Leadership Thank You Letter kb Signatures: Dispatcher [employer] Bonnie Rosario FNP-C FNP-Andres Alcantara, RN RN Braden Regalado, RN RN rs5
[2023-07-17 19:12] VITALS: BP 151/78; TEMP 97.9; O2SAT 99
== END ==
LOC: ER 14:48
DX: K59.00 Constipation, unspecified (principal)
CPT/HCPCS: 74018

== ENCOUNTER 2024-07-17 21:12 | Emergency (ER) | payer SELFPAY ==
--- OUTSIDE RECORDS SUMMARY | 2024-07-17 21:14 | XMS REPORT | Continuity of Care Document ---
Author Name Unknown Address [address] [facility] [address] th[address] Address [address] [facility] [place] [address] Care Team Providers Care Personal Injury Legal Assistant Name Role Phone Unavailable Unavailable Unavailable Encounters Start Date/Time End Date/Time Encounter Type Admission Type Attending Clinicians Care Facility Care Department Encounter ID Source 2023-10-03 14:04:35 2023-10-03 14:04:35 Outpatient [facility] [id number] Man Baker 2023-09-10 14:03:35 2023-09-10 14:03:35 Outpatient [facility] [id number] Man Baker
[2024-07-17 23:54] LABS: Absolute Lymphocytes (CBC) 1.4 K/uL (0.7-4.9); Absolute Monocytes 0.6 K/uL (0.1-1.3); Basophils % 0.8 % (0-1.3); Eosinophils % 0.5 % (0-4.4); Hematocrit 47.1 % (39.6-49.0); Hemoglobin 16.6 g/dL (13.6-17.9); Lymphocytes % 27.5 % (15.3-44.8); MCH 32.7 pg (27.0-35.0); MCHC 35.2 g/dL (32.0-36.0); MCV 92.9 fL (80-100); MPV 7.7 fL (7.6-11.3); Monocytes % 11.3 % (3.3-12.3); Neutrophils % 59.9 % (41.7-73.7); Nucleated Red Blood Cells % 0.1 % (0-0); Platelets 294 thou/uL (152-406); RBC Red Blood Cell Count 5.07 M/uL (4.33-5.43)
[2024-07-18 00:10] LABS: Specific Gravity > 1.030 (1.005-1.030); Sqamous Epithelial None Seen /HPF (None Seen); Urine Bacteria None Seen /HPF (<20); Urine Bilirubin NEGATIVE (Negative); Urine Blood Negative (Negative); Urine Clarity Clear (Clear); Urine Color Yellow (Yellow); Urine Culture Reflex Order NOT NEEDED; Urine Glucose NEGATIVE (Negative); Urine Ketones 1+ (Negative); Urine Micro Reflex YN NO BILL MICROSCOPIC; Urine Mucus Slight /HPF (None Seen); Urine Nitrite NEGATIVE (Negative); Urine Protein 1+ (Negative); Urine RBC <5 /HPF (None Seen); Urine Urobilinogen 1+ (Normal); Urine WBC <5 /HPF (<5)
[2024-07-18 00:16] LABS: Albumin 4.5 g/dL (3.4-5.0); Albumin/Globulin Ratio 1.2 (1.1-1.8); Anion Gap 11.7 mEq/L (5.0-15.0); Bilirubin Total 2.1 mg/dL (0.2-1.0); Globulin 3.9 g/dL (2.3-3.5); Potassium 3.7 mEq/L (3.5-5.1); Protein, Total 8.4 g/dL (6.4-8.2)
--- NOTE | 2024-07-18 03:57 | RAD REPORT ---
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 COMPARISON: XR Abdomen 07/17/[address] Abdomen Pelvis 11/25/2018. PROCEDURE: Contrast-enhanced images of the abdomen and pelvis were performed from the lung bases to the ischial tuberosities after the administration of IV contrast. In addition multiplanar reformats in the coronal and sagittal plane were obtained and reviewed. An individualized dose optimization technique, Automated Exposure Control, was utilized for the perfo rmed procedure. FINDINGS: Lung bases: The lung bases demonstrate to be clear. Liver: The liver demonstrates to be normal, no focal lesions identified. Gallbladder: The gallbladder demonstrate to be normal. Adrenal glands: The adrenal glands demonstrate to be normal. Pancreas: The pancreas demonstrate to be normal. Spleen: The spleen demonstrate to be within normal limits. Kidneys: The kidneys demonstrate normal uptake of contrast media. There is no evidence for nephroli thiasis and/or hydronephrosis. GI: Grossly the unopacified stomach, small bowel and large bowel demonstrate to be within normal limi ts. No evidence for bowel dilatation and/or free air. The appendix is normal. The left-sided colon demonstrate to be decompressed with no gross abnormalities. : The urinary bladder demonstrate to be unremarkable. Genitalia: The prostate gland is normal. Abdominal aorta: The aorta demonstrate to be within normal limits. Retroperitoneum: There is no retroperitoneal lymphadenopathy. There is no evidence for ascites and/or abnormal fluid collections. Bones: The bony structures demonstrate to be within normal limits. No evidence for compression deform ity and/or significant skeletal lesions. Soft tissues: The soft tissues demonstrate to be unremarkable. IMPRESSION: No acute intra-abdominal or pelvic process. Unremarkable CT scan of the abdomen and pelvis with contrast. No significant interval change in [place] with 11/25/2018. Electronically signed by: Velasquez Collins MD 07/18/2024 03:52 AM UNDER WATER ASSISTANT Due to temporary technical issues with the PACS/ExpertFlyer reporting system, reports are being saad d by the in-house radiologist without review as a courtesy to ensure prompt reporting the interpreting radiologist is fully responsible for the content of the report. Transcribed Date/Time: 07/18/2024 3:57 AM
--- NOTE | 2024-07-18 05:17 | ER ---
Nurse's Notes [facility] Name: Jared Gooden Age: 23 yrs Sex: Male : 2000 Arrival Date: 07/17/2024 Time: 21:12 Bed 8 Private MD: Diagnosis: Abdominal pain, unspecified Presentation: 07/17 21:43 Chief complaint: Patient states: c/o LLQ and umbilical pain, nausea, and vomiting since al5 yesterday, states has not been able to keep any food down. tried taking pepto to help with no relief. Coronavirus screen: At this time, the client does not indicate any symptoms associated with coronavirus-19. Ebola Screen: No symptoms or risks identified at this time. Initial Sepsis Screen: Does the patient meet any 2 criteria? HR > 90 bpm. No. Patient's initial sepsis screen is negative. Does the patient have a suspected source of infection? No. Patient's initial sepsis screen is negative. Risk Assessment: Do you want to hurt yourself or someone else? Patient reports no desire to harm self or others. Onset of symptoms was July 16, 2024. 21:43 Method Of Arrival: Ambulatory al5 21:43 Acuity: AMAURI 3 al5 Triage Assessment: 21:45 General: Appears in no apparent distress. comfortable, Behavior is calm, cooperative. al5 Pain: Complains of pain in umbilical area and left lower quadrant Pain does not radiate. Pain currently is 8 out of 10 on a pain scale. EENT: No signs and/or symptoms were reported regarding the EENT system. Neuro: Level of Consciousness is awake, alert, obeys commands, Oriented to person, place, time, situation. Cardiovascular: Capillary refill < 3 seconds Patient's skin is warm and dry. Respiratory: Airway is patent Respiratory effort is even, unlabored, Respiratory pattern is regular, symmetrical. GI: Abdomen is flat, non-distended, Reports lower abdominal pain, nausea, vomiting. : No signs and/or symptoms were reported regarding the genitourinary system. Derm: Skin is intact, is healthy with good turgor, Skin is pink, warm \T\ dry. normal. Musculoskeletal: No signs and/or symptoms reported regarding the musculoskeletal system. Historical: - Allergies: 21:45 No Known Allergies; al5 - PMHx: 21:45 None; al5 - PSHx: 21:45 None; al5 - Immunization history:: Adult Immunizations up to date. - Infectious Disease History:: Denies. - Social history:: Smoking status: Patient reports the use of cigarette tobacco products, smokes one-half pack cigarettes per day, Reported history of juuling and/or vaping. Screenin:46 [facility] ED Fall Risk Assessment (Adult) History of falling in the last 3 months, al5 including since admission No falls in past 3 months (0 pts) Confusion or Disorientation No (0 pts) Intoxicated or Sedated No (0 pts) Impaired Gait No (0 pts) Mobility Assist Device Used No (0 pt) Altered Elimination No (0 pt) Score/Fall Risk Level 0 - 2 = Low Risk Oriented to surroundings, Maintained a safe environment, Hourly rounding (assess needs \T\ fall precautionary measures) done. Abuse screen: Denies threats or abuse. Denies injuries from another. Nutritional screening: No deficits noted. Tuberculosis screening: No symptoms or risk factors identified. Assessment: 21:45 Reassessment: see triage asessment. al5 07/18 01:29 Reassessment: Patient appears in no apparent distress at this time. Patient and/or bm8 family updated on plan of care and expected duration. Pain level reassessed. Patient is alert, oriented x 3, equal unlabored respirations, skin warm/dry/pink. General: Appears in no apparent distress. comfortable, Behavior is calm, cooperative, appropriate for age. Pain: Complains of pain in abdomen Pain currently is 6 out of 10 on a pain scale. Neuro: No deficits noted. Level of Consciousness is awake, alert, obeys commands, Oriented to person, place, time, situation, Appropriate for age. Cardiovascular: Denies chest pain, Capillary refill < 3 seconds in bilateral fingers Patient's skin is warm and dry. Respiratory: Airway is patent Respiratory effort is even, unlabored, Respiratory pattern is regular, symmetrical, Breath sounds are clear bilaterally. GI: Abdomen is flat, non-distended, Bowel sounds present X 4 quads. Abdomen is tender to palpation in right upper quadrant and left upper quadrant Reports nausea, Pain is 6 out of 10 on a pain scale. : No signs and/or symptoms were reported regarding the genitourinary system. EENT: No signs and/or symptoms were reported regarding the EENT system. Derm: No signs and/or symptoms reported regarding the dermatologic system. Musculoskeletal: No signs and/or symptoms reported regarding the musculoskeletal system. 02:35 Reassessment: Patient appears in no apparent distress at this time. Patient and/or bm8 family updated on plan of care and expected duration. Pain level reassessed. Patient is alert, oriented x 3, equal unlabored respirations, skin warm/dry/pink. Patient states feeling better. Patient states symptoms have improved. 03:47 Reassessment: Patient appears in no apparent distress at this time. No changes from vc1 previously documented assessment. Patient and/or family updated on plan of care and expected duration. Pain level reassessed. Patient is alert, oriented x 3, equal unlabored respirations, skin warm/dry/pink. 05:40 Reassessment: Patient appears in no apparent distress at this time. Patient and/or bm8 family updated on plan of care and expected duration. Pain level reassessed. Patient is alert, oriented x 3, equal unlabored respirations, skin warm/dry/pink. Patient denies pain at this time. Patient states feeling better. Patient states symptoms have improved. Vital Signs: 07/17 21:43 BP 153 / 108; Pulse 104; Resp 16; Temp 98.6; Pulse Ox 100% on R/A; Weight 70.76 kg; al5 Height 6 ft. 4 in. ; Pain 8/10; 07/18 01:29 BP 146 / 96; Pulse 79; Resp 18; Temp 98.6; Pulse Ox 100% ; Pain 6/10; bm8 02:35 BP 144 / 101; Pulse 80; Resp 18; Temp 98.6; Pulse Ox 98% ; Pain 3/10; bm8 03:47 BP 129 / 89; Pulse 75; Resp 18; Pulse Ox 100% ; vc1 05:40 BP 125 / 74; Pulse 81; Resp 17; Temp 98.6; Pulse Ox 100% ; Pain 0/10; bm8 07/17 21:43 Body Mass Index 18.99 (70.76 kg, 193.04 cm) al5 07/17 21:43 Pain Scale: Adult al5 07/18 01:29 Pain Scale: Adult bm8 02:35 Pain Scale: Adult bm8 05:40 Pain Scale: Adult bm8 [place] Coma Score: 01:29 Eye Response: spontaneous(4). Motor Response: obeys commands(6). Verbal Response: bm8 oriented(5). Total: 15. 02:35 Eye Response: spontaneous(4). Motor Response: obeys commands(6). Verbal Response: bm8 oriented(5). Total: 15. 05:40 Eye Response: spontaneous(4). Motor Response: obeys commands(6). Verbal Response: bm8 oriented(5). Total: 15. ED Course: 07/17 21:13 Patient arrived in ED. am2 21:20 Diana Penn PA-C is PHCP. sb4 21:20 Chandrakant Edwards MD is Attending Physician. sb4 21:44 Triage completed. al5 21:46 Arm band placed on right wrist. Patient placed in the treatment room, on pulse oximetry.al5 21:46 Patient has correct armband on for positive identification. Provided Education on: plan al5 of care. 21:46 No provider procedures requiring assistance completed. al5 23:31 Urine collected: clean catch specimen, clear. Inserted saline lock: 20 gauge in left lg3 antecubital area, using aseptic technique. Blood collected. Flushed with 10 mL NS. 23:31 UAM Sent. lg3 23:31 CBC with Diff Sent. lg3 23:31 CMP Sent. lg3 23:31 Lipase Sent. lg3 02 01:01 CT Abd/Pelvis - IV Contrast Only In Process Unspecified. EDMS 01:19 Howard Barnes, RN is Primary Nurse. bm8 01:29 Client placed on continuous cardiac and pulse oximetry monitoring. NIBP monitoring bm8 applied. Pulse ox on. NIBP on. Door closed. Warm blanket given. Pillow given. Verbal reassurance given. Head of bed elevated. 01:29 Patient maintains SpO2 saturation greater than 95% on room air. bm8 05:40 IV discontinued, intact, bleeding controlled, No redness/swelling at site. Pressure bm8 dressing applied. Administered Medications: No medications were administered Medication: 07/17 21:45 VIS not applicable for this client. al5 Outcome: 07/18 05:17 Discharge ordered by . bo1 05:40 Discharged to home ambulatory, bm8 05:40 Condition: stable 05:40 Discharge instructions given to patient, family, Instructed on discharge instructions, follow up and referral plans. Demonstrated understanding of instructions, follow-up care, 05:41 Patient left the ED. bm8 Signatures: Dispatcher [employer] EDNkcehi Anand Lacie, RN RN lg3 Danna Flower, RN RN vc1 Diana Penn, PAHoma PAHoma sb4 Chandrakant Edwards MD MD bo1 Howard Barnes RN RN bm8 Nkechi Hernandez, RN RN al5
--- NOTE | 2024-07-18 05:17 | EDPHYS ---
Physician Documentation [facility] Name: Jared Gooden Age: 23 yrs Sex: Male : 2000 Arrival Date: 07/17/2024 Time: 21:12 Bed 8 Private MD: ED Physician Chandrakant Edwards HPI: 07/18 01:41 This 23 yrs old Black Male presents to ER via Ambulatory with complaints of Abdominal sb4 Pain - lower. 01:41 Patient reports lower abdominal pain x 2 days. States that is associated with nausea sb4 and vomiting. He denies any diarrhea. States he has not had a bowel movement in 2 days. States that he had a prior episode of this about 1 year ago and ended up being constipation that improved with a laxative. Denies any fever chills or shortness of breath. Denies any medical history or daily medication. Historical: - Allergies: 07/17 21:45 No Known Allergies; al5 - PMHx: 21:45 None; al5 - PSHx: 21:45 None; al5 - Immunization history:: Adult Immunizations up to date. - Infectious Disease History:: Denies. - Social history:: Smoking status: Patient reports the use of cigarette tobacco products, smokes one-half pack cigarettes per day, Reported history of juuling and/or vaping. ROS: 07/18 01:41 Constitutional: Negative for fever, chills, and weight loss, sb4 Abdomen/GI: Positive for abdominal pain, nausea and vomiting, All other systems are negative, Exam: 01:41 Constitutional: This is a well developed, well nourished patient who is awake, alert, sb4 and in no acute distress. Head/Face: Normocephalic, atraumatic. Eyes: Extra-ocular motions intact. Periorbital areas with no swelling, redness, or edema. ENT: Mucous membranes moist. Cardiovascular: Regular rate and rhythm with a normal S1 and S2. Respiratory: No increased work of breathing, no retractions or nasal flaring. Skin: Warm, dry with normal turgor. Normal color with no rashes, no lesions, and no evidence of cellulitis. 01:41 Abdomen/GI: Inspection: abdomen appears normal, Bowel sounds: normal, Palpation: soft, mild abdominal tenderness, in the right lower quadrant and left lower quadrant, Vital Signs: 07/17 21:43 BP 153 / 108; Pulse 104; Resp 16; Temp 98.6; Pulse Ox 100% on R/A; Weight 70.76 kg; al5 Height 6 ft. 4 in. ; Pain 8/10; 07/18 01:29 BP 146 / 96; Pulse 79; Resp 18; Temp 98.6; Pulse Ox 100% ; Pain 6/10; bm8 02:35 BP 144 / 101; Pulse 80; Resp 18; Temp 98.6; Pulse Ox 98% ; Pain 3/10; bm8 03:47 BP 129 / 89; Pulse 75; Resp 18; Pulse Ox 100% ; vc1 05:40 BP 125 / 74; Pulse 81; Resp 17; Temp 98.6; Pulse Ox 100% ; Pain 0/10; bm8 07/17 21:43 Body Mass Index 18.99 (70.76 kg, 193.04 cm) al5 07/17 21:43 Pain Scale: Adult al5 07/18 01:29 Pain Scale: Adult bm8 02:35 Pain Scale: Adult bm8 05:40 Pain Scale: Adult bm8 Troy Coma Score: 01:29 Eye Response: spontaneous(4). Motor Response: obeys commands(6). Verbal Response: bm8 oriented(5). Total: 15. 02:35 Eye Response: spontaneous(4). Motor Response: obeys commands(6). Verbal Response: bm8 oriented(5). Total: 15. 05:40 Eye Response: spontaneous(4). Motor Response: obeys commands(6). Verbal Response: bm8 oriented(5). Total: 15. MDM: 07/17 21:57 Medical Screening Exam initiated sb4 07/18 02:49 Data reviewed: vital signs, nurses notes, lab test result(s), radiologic studies. sb4 Counseling: I had a detailed discussion with the patient and/or guardian regarding the historical points, exam findings, and any diagnostic results supporting the discharge/admit diagnosis, the presence of at least one elevated blood pressure reading (>120/80) during this emergency department visit, lab results, radiology results, the need for outpatient follow up, for definitive care, to return to the emergency department if symptoms worsen or persist or if there are any questions or concerns that arise at home. Awaiting: CT scan results. 07/17 22:30 Order name: CBC with Diff; Complete Time: 00:11 sb4 07/17 22:30 Order name: CMP; Complete Time: 00:24 sb4 07/17 22:30 Order name: Lipase; Complete Time: 00:24 sb4 07/17 22:30 Order name: UAM; Complete Time: 00:11 sb4 07/18 00:11 Order name: CT Abd/Pelvis - IV Contrast Only; Complete Time: 04:42 sb4 07/17 22:30 Order name: IV Saline Lock; Complete Time: 23:31 sb4 07/17 22:30 Order name: Labs collected and sent; Complete Time: 23:31 sb4 Administered Medications: No medications were administered Disposition: 05:16 I agree with the assessment and plan of care. I reviewed the patient's care provided by bo1 Advanced Practice Provider \T\ agree w/ the diagnosis \T\ care plan. I personally saw the pt \T\ performed a substantive portion of the visit, incldng all aspects of the (History/Exam/Medical Decision Making). Disposition Summary: 07/18/24 05:17 Discharge Ordered Notes: Location: Home bo1 Problem: chronic bo1 Symptoms: are unchanged bo1 Condition: Stable bo1 Diagnosis - Abdominal pain, unspecified bo1 Followup: bo1 - With: Private Physician - When: Upon discharge from the Emergency Department - Reason: Recheck today's complaints, Continuance of care Discharge Instructions: - Discharge Summary Sheet bo1 - Abdominal Pain, Adult bo1 Forms: - Medication Reconciliation Form bo1 - Antibiotic Education bo1 - Prescription Opioid Use bo1 - Patient Portal Instructions bo1 - Leadership Thank You Letter bo1 Prescriptions: - Senokot 8.6 mg Oral tablet - take 4 tablet ORAL route every day at bedtime; 20 tablet; Refills: 0, Product bo1 Selection Permitted Signatures: Dispatcher [employer] EDDiana Giron PA-C PA-C sb4 Chandrakant Edwards MD MD bo1 Nkechi Hernandez RN RN al5 Corrections: (The following items were deleted from the chart) 07/17 22:30 22:30 CBC+H.LAB.BRZ ordered. EDMS EDMS 22:30 22:30 COMPREHENSIVE METABOLIC PANEL+C.LAB.BRZ ordered. EDMS EDMS 22:30 22:30 LIPASE+C.LAB.SUZIZ ordered. EDMS EDMS
[2024-07-18 05:51] VITALS: TEMP 98.6
[2024-07-18 06:09] VITALS: O2SAT 100
[2024-07-18 06:10] VITALS: BP 125/74
== END 2024-07-18 05:41 | disposition home or self-care (01) ==
LOC: ER 21:12
DX: R10.32 Left lower quadrant pain (principal); F17.210 Nicotine dependence, cigarettes, uncomplicated
CPT/HCPCS: 36415; 74177; 80053; 81001; 83690; 85025; 99284; Q9967